=== PATIENT | female | born 1995 | race Caucasian/White ===

== ENCOUNTER 2022-02-15 19:00 | Inpatient (IN) | payer BC ==
[2022-02-15] MEDS ORDERED: Methylergonovine 0.2 MG/1 ML Amp IM PRN (19:07)
[2022-02-15] MEDS ORDERED: Carboprost Tromethamine 250 MCG/1 ML Amp IM PRN (19:07)
[2022-02-15] MEDS ORDERED: Ondansetron 4 MG/2 ML SDV IVPUSH PRN (19:07)
[2022-02-15] MEDS ORDERED: Misoprostol 25 MCG (1/4 of 100 MCG) Tab VAG PRN ×2 (19:07)
[2022-02-15] MEDS ORDERED: Sodium Chloride 0.9% 20 ML SDV IV PRN (19:07)
[2022-02-15] MEDS ORDERED: Water For Irrigation,Sterile 1,000 ML Container IRR PRN (19:07)
[2022-02-15] MEDS ORDERED: Butorphanol 1 MG/ML SDV IVPUSH PRN (19:07)
[2022-02-15] MEDS ORDERED: Misoprostol 200 MCG Tab PO PRN (19:07)
[2022-02-15] MEDS ORDERED: Tranexamic Acid 1,000 MG in Sodium Chloride 0.9% 100 ML IV PRN (19:07)
[2022-02-15] MEDS ORDERED: Lidocaine 1% 50 ML MDV INJECT PRN (19:07)
[2022-02-15] MEDS ORDERED: Sodium Chloride 0.9% 10 ML Syringe FLUSH PRN (19:07)
[2022-02-15] MEDS ORDERED: Sodium Chloride 0.9% 2.5 ML Syringe FLUSH PRN (19:07)
[2022-02-15] MEDS ORDERED: Terbutaline 1 MG/ML SDV SUBCUT PRN (19:07)
[2022-02-15] MEDS ORDERED: Oxytocin/0.9 % Sodium Chloride 30 UNIT/500 ML BAG IV SCH ×2 (19:15)
[2022-02-15] MEDS: Lactated Ringers 1,000 ML IV SCH (21:05)
[2022-02-16] MEDS ORDERED: hydrOXYzine Pamoate 25 MG Cap PO ONE (03:25)
[2022-02-16] MEDS: Lactated Ringers 1,000 ML IV SCH ×3 (08:56→17:34)
[2022-02-16] MEDS ORDERED: Ropivacaine/PF 400 MG/200 ML PCA ONE (09:10)
[2022-02-16] MEDS ORDERED: Phenylephrine HCl In 0.9% NaCl 1 MG/10 ML Vial ONE (10:18)
[2022-02-16] MEDS ORDERED: ePHEDrine 50 MG/ML SDV ONE (10:19)
[2022-02-16] MEDS ORDERED: ePHEDrine 50 MG/ML SDV IVPUSH PRN (10:31)
[2022-02-16] MEDS ORDERED: Phenylephrine HCl In 0.9% NaCl 1 MG/10 ML Vial IVPUSH SCH (10:45)
[2022-02-16] MEDS ORDERED: Ropivacaine HCl/PF 400 MG in Premix Bag 1 BAG EPIDUR SCH (10:45)
[2022-02-17] MEDS ORDERED: Bisacodyl 10 MG Supp RECTAL PRN (00:38)
[2022-02-17] MEDS ORDERED: oxyCODONE 5 MG Tab PO PRN (00:38)
[2022-02-17] MEDS ORDERED: Docusate Sodium 100 MG Cap PO PRN (00:38)
[2022-02-17] MEDS ORDERED: Acetaminophen 500 MG Tab PO PRN (00:38)
[2022-02-17] MEDS ORDERED: Ibuprofen 400 MG Tab PO PRN (00:38)
[2022-02-17] MEDS ORDERED: Aluminum Hydroxide/Magnesium Hydroxide/Simethicone XS Susp 30 ML Cup PO PRN (00:38)
[2022-02-17] MEDS ORDERED: Lanolin 100% Cream 7 GM Tube TOP PRN (00:38)
[2022-02-17] MEDS: Witch Hazel Medicated Pads 40/Jar TOP PRN ×2 (02:16→20:39)
[2022-02-17] MEDS: Ibuprofen 800 MG Tab PO PRN ×3 (02:16→20:13)
[2022-02-17] MEDS: Benzocaine/Menthol 20%-0.5% Spray 78 GM Cannister TOP PRN ×2 (02:17→20:39)
[2022-02-17] MEDS: Acetaminophen 500 MG Tab PO PRN ×2 (06:25→14:39)
[2022-02-18] MEDS: Ibuprofen 800 MG Tab PO PRN (07:12)
== END 2022-02-18 13:00 | disposition home or self-care (01) | DRG 560 ==
LOC: MW.OB 19:00 → MW.OBCHECK 19:00 → MW.OB 19:08 → OBSVTOIN 02-17 00:07 → MW.OB 02-17 02:19
PROVIDERS: ADMIT Obstetrics & Gynecology; ATTEND Obstetrics & Gynecology
PROC: 10E0XZZ Delivery of Products of Conception, External Approach (ICD-10-PCS; principal; 2022-02-17)
PROC: 3E0P7VZ Introduction of Hormone into Female Reproductive, Via Natural or Artificial Opening (ICD-10-PCS; 2022-02-17)
PROC: 0KQM0ZZ Repair Perineum Muscle, Open Approach (ICD-10-PCS; 2022-02-17)
PROC: 3E0R3BZ Introduction of Anesthetic Agent into Spinal Canal, Percutaneous Approach (ICD-10-PCS; 2022-02-17)
PROC: 00HU33Z Insertion of Infusion Device into Spinal Canal, Percutaneous Approach (ICD-10-PCS; 2022-02-17)
DX: O48.0 Post-term pregnancy (principal); Z37.0 Single live birth; O70.1 Second degree perineal laceration during delivery; Z3A.41 41 weeks gestation of pregnancy; Z20.822 Contact with and (suspected) exposure to COVID-19; Z88.0 Allergy status to penicillin; Z88.5 Allergy status to narcotic agent
CPT/HCPCS: 01967; 36410; 36415; 51702; 59025; 59409; 82803; 85014; 85018; 85027; 86592; 86850; 86900; 86901; A9270-GY; J2590; J2795; J7120; U0002

== ENCOUNTER 2022-02-27 06:32 | Emergency (ER) | payer BC ==
[2022-02-27] MEDS ORDERED: Sodium Chloride 0.9% 2.5 ML Syringe FLUSH PRN (07:31)
[2022-02-27] MEDS ORDERED: Sodium Chloride 0.9% 1,000 ML IV ONE (07:31)
[2022-02-27] MEDS ORDERED: Sodium Chloride 0.9% 10 ML Syringe FLUSH PRN (07:31)
[2022-02-27 08:27] LABS: CARBON DIOXIDE,CO2 20.3 mmol/L (21.0-32.0)
== END 2022-02-27 12:04 | disposition home or self-care (01) ==
LOC: MW.ED 06:32
DX: O72.1 Other immediate postpartum hemorrhage (principal); Z88.0 Allergy status to penicillin; Z88.5 Allergy status to narcotic agent
CPT/HCPCS: 36415; 76857; 80053; 85025; 96360; 99284; J3490; J7030